=== PATIENT | male | born 1975 | race African-American/Black ===

== ENCOUNTER 2017-02-05 10:43 | Emergency (ER) | payer SELFPAY ==
[~2017-02-05] VITALS: Ht 185.4 cm; Wt 88.0 kg
[2017-02-05 10:45] VITALS: BP 150/88; PULSE 72; RESP 16; TEMP 98.6; O2SAT 99
[2017-02-05] MEDS ORDERED: AZITHROMYCIN 250 MG TAB PO ONE (11:00)
[2017-02-05] MEDS ORDERED: LIDOCAINE HCL 1% 50 ML VIAL XX ONE (11:00)
[2017-02-05] MEDS ORDERED: SODIUM CHLORIDE 0.9% FLUSH 10 ML FLUSH IVF PRN (11:00)
--- NOTE | 2017-02-05 11:02 | PD ---
HPI Chief Complaint: Complaint Time Seen by Provider: 10:57 Travel History International Travel<30 days: No Contact w/Intl Traveler<30days: No Traveled to known affect area: No History of Present Illness HPI 43-year-old Afro-[place] male presents to emergency Department with recent dysuria, penile discharge. States he was at a constitution party and had unprotected sex 5 days ago, and developed symptoms over the last 2 days. The patient denies fever , chills, abdominal pain, or flank pain. Patient has no known drug allergies. PFSH Past Medical History Diminished Hearing: No Past Surgical History Abdominal Surgery: Yes Tonsillectomy: Yes Social History Alcohol Use: Yes Tobacco Use: Yes Substance Use: Yes Allergies-Medications (Allergen,Severity, Reaction): Coded Allergies: No Known Allergies (Verified Adverse Reaction, Unknown, 02/05/17) Reported Meds & Prescriptions Reported Meds & Active Scripts Active Cipro (Ciprofloxacin HCl) 500 Mg Tab 500 Mg PO BID Review of Systems Except as stated in HPI: all other systems reviewed are Neg General / Constitutional: No: Fever, Chills Eyes: No: Visual changes HENT: No: Headaches Cardiovascular: No: Chest Pain or Discomfort Respiratory: No: Shortness of Breath Gastrointestinal: No: Abdominal Pain Genitourinary: Positive: Dysuria, Discharge, No: Urgency, Frequency, Decreased Urinary Output, Flank Pain Musculoskeletal: No: Pain Skin: No Rash Neurologic: No: Weakness Psychiatric: No: Depression Endocrine: No: Polydipsia Hematologic/Lymphatic: No: Easy Bruising Physical Exam Narrative GENERAL: Patient appears in no acute distress. SKIN: Warm and dry. HEAD: Atraumatic. Normocephalic. EYES: Pupils equal and round. No scleral icterus. No injection or drainage. ENT: No nasal bleeding or discharge. Mucous membranes pink and moist. NECK: Trachea midline. No JVD. CARDIOVASCULAR: Regular rate and rhythm. RESPIRATORY: No accessory muscle use. Clear to auscultation. Breath sounds equal bilaterally. GASTROINTESTINAL: Abdomen soft, non-tender, nondistended. Hepatic and splenic margins not palpable. Patient has expressible penile discharge. Nontender. No testicular pain. No rash. MUSCULOSKELETAL: Extremities without clubbing, cyanosis, or edema. No obvious deformities. NEUROLOGICAL: Awake and alert. No obvious cranial nerve deficits. Motor grossly within normal limits. Five out of 5 muscle strength in the arms and legs. Normal speech. PSYCHIATRIC: Appropriate mood and affect; insight and judgment normal. Data Data Last Documented VS Vital Signs Date Time Temp Pulse Resp B/P (MAP) Pulse Ox O2 Delivery O2 Flow Rate FiO2 02/05/17 10:45 98.6 72 16 150/88 (108) 99 Orders Orders Gc And Chlamydia Pcr (02/05/17 10:52) Urinalysis - C+S If Indicated (02/05/17 10:52) Azithromycin (Zithromax) (02/05/17 11:00) Ceftriaxone Inj (Rocephin Inj) (02/05/17 11:00) Sodium Chloride 0.9% Flush (Ns Flush) (02/05/17 11:00) Lidocaine 1% Inj (50 Ml) (Xylocaine 1% I (02/05/17 11:00) Urine Culture (02/05/17 11:10) Labs Laboratory Tests Test 02/05/17 11:10 Urine Color YELLOW Urine Turbidity HAZY Urine pH 5.5 Urine Specific [place] 1.021 Urine Protein TRACE mg/dL Urine Glucose (UA) NEG mg/dL Urine Ketones NEG mg/dL Urine Occult Blood MOD Urine Nitrite NEG Urine Bilirubin NEG Urine Urobilinogen LESS THAN 2.0 MG/DL Urine Leukocyte Esterase LARGE Urine RBC 38 /hpf Urine WBC /hpf Urine Squamous Epithelial Cells 2 /hpf Urine Bacteria OCC /hpf Urine Mucus FEW /lpf Microscopic Urinalysis Comment CULTURE INDICATED MDM Medical Decision Making Medical Screen Exam Complete: Yes Emergency Medical Condition: Yes Differential Diagnosis Unprotected sex. Penile discharge. STD. Narrative Course Urinalysis and GC chlamydia sent to the lab. Patient is given 1000 mg Rocephin IM. Patient is given 1000 mg azithromycin by mouth. Discussed safe sex practices with the patient. Urine culture is pending. Patient continued on Cipro twice a day 10 days. Patient is referred to the health department to ensure clearance. Instructed the patient to have his partner checked and treated Diagnosis Primary Impression: Penile discharge, without blood Additional Impression: UTI (urinary tract infection) Referrals: [facility] Dept. Patient Instructions: Chlamydia (ED), General Instructions, Gonorrhea (ED) Additional Instructions: Urinalysis and GC chlamydia sent to the lab. Patient is given 1000 mg Rocephin IM. Patient is given 1000 mg azithromycin by mouth. Discussed safe sex practices with the patient. Urine culture is pending. Patient continued on Cipro twice a day 10 days. Patient is referred to the health department to ensure clearance. Instructed the patient to have his partner checked and treated Med/Other Pt SpecificInfo: No Meds Exist/No RX given Scripts Ciprofloxacin (Cipro) 500 Mg Tab 500 MG PO BID for Infection, #20 TAB 0 Refills Prov: Lilia Xiao DO 02/05/17 Disposition: 01 DISCHARGE HOME Condition: Stable Andriy Herndon Feb 05, 2017 11:02
[2017-02-05 11:47] LABS: BACTERIA, URINE OCC /hpf; BLOOD, URINE MOD (NEG); COMMENT (UR) CULTURE INDICATED; CULTURE IF INDICATED CULTURE INDICATED; GLUCOSE,URINE NEG (NEG); KETONE, URINE NEG (NEG); MUCUS URINE FEW /lpf (OCC); NITRITE,URINE NEG (NEG); PH, URINE 5.5 (5.0-8.5); SQUAMOUS EPITHELIAL CELL URINE 2 /hpf (0-5); URINE COLOR YELLOW (YELLW/STRAW)
[2017-02-05] MEDS ORDERED: CIPR-9 PO (12:47)
[2017-02-05 18:26] LABS: CHLAMYDIA PCR NOT DETECTED (NOT DETECT); NEISSERIA PCR DETECTED (NOT DETECT)
== END 2017-02-05 13:08 | disposition home or self-care (01) ==
LOC: NEPD 10:43
DX: N39.0 Urinary tract infection, site not specified (principal); B96.89 Other specified bacterial agents as the cause of diseases classified elsewhere; Z72.0 Tobacco use
CPT/HCPCS: 81001; 87086; 87491; 87591; 96372; 99284; J0696